=== PATIENT | female | born 1965 | race Caucasian/White ===

== ENCOUNTER → 2017-03-06 | Outpatient (CLI) | payer OTHER ==
[~2017-03-06] VITALS: Ht 165.1 cm; Wt 74.4 kg
[~2017-03-06] MED LIST: ATENOLOL 50 MG50 M1 PO; LAMISIL250 MG PO
--- NOTE | ~2017-03-06 | H ---
[facility] [place] [address] HISTORY AND PHYSICAL Name: SAIGE FREEMAN Room #: REG LESLIE Osborn.#: [id number] Admission: 03/06/17 Attend Phys: Israel Coffey MD, FA Discharge: Date of : 61 Report #: [id number] THIS REPORT FOR: //name// CC: Israel Kauffman MD DATE OF SERVICE: 03/06/2017. PRIMARY CARE PHYSICIAN: Dr. Kauffman Gail. HISTORY OF PRESENT ILLNESS: The patient is a 51-year-old white female who was brought to the outpatient department to undergo repeat cardiac catheterization. The patient apparently was found to have a heart murmur in the 1980s. She was seen in [facility] and was found to have evidence of mitral valve prolapse and PVCs. I followed her for several years. She actually presented in 2012 with chest pain relieved with nitroglycerin. She was seen by Dr. Ibanez. He actually performed a cardiac catheterization from the right femoral artery. This showed normal coronary arteries, mitral valve prolapse, moderate to severe mitral regurgitation and normal left ventricular function. Her chest pain was felt to be noncardiac. She works on a regular basis at the gym. Recently, however, she notes when she exerts herself she became short winded. She denied any edema, fever or cough. She denies any syncope. She does note occasional flutter in her chest. When she is under stress, she will real feel a pressure in her chest. I recently saw her in the cardiology clinic in December. Echocardiogram at that time showed normal left ventricular function with moderate to severe mitral regurgitation with mitral valve prolapse, I felt she may require mitral valve repair. She underwent an outpatient ARNOLD that confirmed mitral valve prolapse and moderate severe mitral regurgitation. She recently was seen by Dr. Trevin Adam who agreed with need for mitral valve repair. However, prior to surgery he recommended a repeat cardiac catheterization to look for any coronary artery disease. PAST MEDICAL HISTORY: Otherwise significant for tonsillectomy, D and C, tubal ligation, lithotripsy for kidney stones. She has a history of hypertension, hyperlipidemia. No history of diabetes. MEDICATIONS: Consists of atenolol she has been on Lamisil for a toenail fungus. ALLERGIES: She has no known drug allergies. FAMILY HISTORY: Her father had coronary artery bypass surgery. SOCIAL HISTORY: She is . She and her live in [place], [place]. She works in accounting office. No smoking. Rarely drinks alcohol. [address] [address] HISTORY AND PHYSICAL Name: SAIGE FREEMAN Room #: REG [facility] Richard#: [id number] Admission: 03/06/17 Attend Phys: Israel Coffey MD, FA Discharge: Date of : 61 Report #: [id number] REVIEW OF SYSTEMS: She has had no history of stroke, asthma, peptic ulcer disease, liver disease, cancer, psychiatric illness. PHYSICAL EXAMINATION: GENERAL: Revealed a middle-aged female. VITAL SIGNS: Blood pressure 120/80, her pulse is 70. She is afebrile. HEENT: She was anicteric, conjunctiva pink. Mucous membranes moist. NECK: Veins nondistended. No carotid bruits. Neck was supple. CHEST: Clear to auscultation. CARDIOVASCULAR: Regular rate and rhythm, mid systolic click, grade 2 holosystolic murmur at the apex. ABDOMEN: Soft. EXTREMITIES: Had no edema. Posterior tibial pulse 2+ bilaterally. SKIN: Warm, dry. NEUROLOGIC: Nonfocal. LABORATORY DATA: ECG shows a sinus rhythm, nonspecific ST-segment changes. IMPRESSION AND RECOMMENDATIONS: 1. Mitral valve prolapse with mitral regurgitation. Recommend cardiac catheterization and possible mitral valve repair. 2. Hypertension. The patient has been on a beta pippa. 3. Premature ventricular contractions. 4. History of kidney stones. 5. Hyperlipidemia. The patient has an LDL of 145 in the past. <ELECTRONICALLY SIGNED> By: Israel Coffey MD, [facility] 03/06/17 0858 [id number] Israel Coffey MD, FACC /nt
--- NOTE | ~2017-03-06 | CATHLAB ---
[facility] D[address] [employer] [address] INVASIVE PROCEDURE REPORT Name: SAIGE FREEMAN Room #: REG Richard#: [id number] Admission: 03/06/17 Attend Phys: Israel Coffey MD Discharge: Date of : 61 Date of Service: 03/06/17 1513 Report #: [id number] THIS REPORT FOR: //name// APPROVED REPORT Patient Details Patient Status: Out-Patient Room #: The patient is a 51 year-old female Event Personnel Israel Coffey Accounts Receivable Associate, Larisa Linares El-Ghussein, Yasmeen RN Monitor, Lulú Ferris RN RN, Casey Terrazas technical instructor course developer Performed Art Access - R radial artery Left Heart Cath w/or w/o Coronaries [id number] [facility] Hemostasis with Hemoband Indication Valvular heart disease Admission/Lab Medications/Medications given during procedure Aspirin Procedure Narrative The patient was brought electively to the Cardiac Catheterization Laboratory and was prepped and draped in a sterile manner. The Right Wrist^ was infiltrated with 1% Lidocaine subcutaneous anesthesia. A TRANSRADIAL SLENDER 6F GLIDESHEATH KIT #[id number] sheath was inserted into the Right Radial Artery^. Coronary angiography was performed using coronary diagnostic catheters. The right coronary system was accessed and visualized with a 5FR RCB #[id number] catheter. The left coronary system was accessed and visualized with a 6FR JL 3.5 #[id number] catheter. The left ventricle was accessed and visualized with a 5Fr Angled Pigtail catheter. Left ventricular/Aortic Valve gradient assessed via catheter pullback. Left ventriculogram was performed in JONES projection. The patient tolerated the procedure well and there were no complications associated with the procedure. There was no hematoma. Intraoperative Conscious Sedation Sedation start time: 808 Case end Time: 850 Versed 2 mg [facility] [address] [place] [address] INVASIVE PROCEDURE REPORT Name: SAIGE FREEMAN Room #: REG [facility].#: [id number] Admission: 03/06/17 Attend Phys: Israel Coffey MD Discharge: Date of : 61 Date of Service: 03/06/17 1513 Report #: [id number] Fluoro Time: 6.20 minutes Dose: DAP 4795.70 cGycm2 471 mGy Contrast Type and Amount: Omnipaque 115 ml Coronary Angiography The patient's coronary anatomy is right dominant. Andreafski Artery Percent Stenosis Left Main: 0 % Prox LAD: 0 % Mid/Distal LAD: 0 % Circumflex: 0 % RCA: 0 % Ramus: 0 % Left Ventriculography The left ventricle is mildly dilated in size with normal contractility. The left ventricular ejection fraction is estimated to be 50-55%. Left ventricular wall motion abnormalities are not present. There is 2+ mitral insufficiency. Hemodynamics The aortic pressure is 108/74 mmHg with a mean of 88 mmHg. The left ventricular pressure is 136/0 mmHg with a mean of mmHg. The left ventricular end diastolic pressure is 12 mmHg. There was no gradient across the aortic valve upon pullback. Pullback from the left ventricle to the aorta revealed no gradient across the aortic valve. Conclusion 1. Normal coronary arteries 2. Moderate mitral regurgitation 3. left ventricle was dilated with an EF of 50% 4. recommend referral for mitral valve repair Recommendations Valve Surgery <ELECTRONICALLY SIGNED> By: Israel Coffey MD, FACC 03/06/17 1513 1513 1513 Israel Coffey MD, FACC /INF
--- NOTE | ~2017-03-06 | EKG ---
[place] [address] [place] [address] ELECTROCARDIOGRAM REPORT Name: SAIGE FREEMAN [id number] Admission: 03/06/17 Attend Phys: Israel Coffey MD, Discharge: Date of : 61 Report #: [id number] THIS REPORT FOR: //name// [facility] Test Date: 2017-03-06 Test Time: 07:20:38 Pat Name: SAIGE FREEMAN Department: Room: Gender: F Renewals Specialist: Kari : 1965 Requested By: Israel Coffey Order Number: [id number] MD: Measurements Intervals [place] Rate: 67 P: 7 CA: 200 QRS: -3 QRSD: 100 T: 50 QT: 389 QTc: 411 Interpretive Statements Sinus rhythm Compared to ECG 04/02/2013 09:05:52 No significant changes [email or web address] By: 9 9 Rosie Velez MD /EPI
[2017-03-06 07:13] LABS: HEMATOCRIT 43.2 % (37.0-47.0); HEMOGLOBIN 14.6 gm/dL (12.0-15.0); MCH 31.9 pg (26.0-34.0); MCHC 33.9 g/dL (28.0-37.0); MCV 94.2 fL (80.0-100.0); RBC 4.58 mil/uL (4.20-5.00); WBC 4.7 thou/uL (4.0-11.0)
[2017-03-06 07:28] VITALS: BP 118/82
[2017-03-06 07:33] LABS: ANION GAP 3 mmol/L (7-16); BUN 13 mg/dL (7-18); CHLORIDE 108 mmol/L (98-107); CO2 31 mmol/L (21-32); CREATININE 0.9 mg/dL (0.6-1.0); GLUCOSE 91 mg/dL (74-106); SODIUM 142 mmol/L (136-145)
[2017-03-06 07:53] LABS: CHOLESTEROL 232 mg/dL (<200); HDL CHOLESTEROL 49 mg/dL (>40); LDL CHOLESTEROL 160 mg/dL (<100); TC:HDL 4.7 Ratio (Not establshd); TRIGLYCERIDE 118 mg/dL (<150); VLDL 24 mg/dL (<40)
== END | disposition home or self-care (01) ==
LOC: CATH 06:32
PROVIDERS: Internal Medicine Cardiovascular Disease
DX: I34.0 Nonrheumatic mitral (valve) insufficiency (principal); I34.1 Nonrheumatic mitral (valve) prolapse; Z82.49 Family history of ischemic heart disease and other diseases of the circulatory system; Z79.899 Other long term (current) drug therapy; Z98.890 Other specified postprocedural states; I10 Essential (primary) hypertension; E78.5 Hyperlipidemia, unspecified